=== PATIENT | male | born 1990 | race Caucasian/White ===

== ENCOUNTER 2018-03-29 10:33 | Day surgery (SDC) | payer OTHER ==
[~2018-03-29] VITALS: Ht 185.4 cm; Wt 99.8 kg
[2018-03-29] MEDS ORDERED: fentaNYL 0.05 MG/ML VIAL ONE (11:33)
[2018-03-29] MEDS ORDERED: MIDAZOLAM 2 MG/2 ML VIAL ONE (11:33)
[2018-03-29] MEDS ORDERED: MIDAZOLAM 2 MG/2 ML VIAL IVP ONE (12:50)
== END 2018-03-29 12:57 | disposition home or self-care (01) ==
LOC: MMU 10:33 → MDS 10:33
PROVIDERS: ATTEND Internal Medicine Gastroenterology
DX: K44.9 Diaphragmatic hernia without obstruction or gangrene (principal); Z87.442 Personal history of urinary calculi; Z88.1 Allergy status to other antibiotic agents; Z88.0 Allergy status to penicillin
CPT/HCPCS: 43235; J2250; J3010

== ENCOUNTER 2020-04-24 11:51 | Emergency (ER) | payer SELFPAY ==
[~2020-04-24] VITALS: Ht 185.4 cm; Wt 99.8 kg
--- NOTE | 2020-04-24 11:51 | NUR ---
Patient BIBA BLS, transferred to bed 4. RN evaluating patient at bedside.
--- NOTE | 2020-04-24 11:54 | NUR ---
30 YO M BIBA C/O LEFT SIDED FLANK PAIN 2 HOURS PRIOR TO ARRIVAL. PAIN SCALE 10/10, SHARP STABBING IN CHARACTER. PT ALSO WITH DYSURIA, 3 VOMITING EPISODES, SWEATING AND CHILLS. PT UNDERWENT LITHOTRIPSY OF RIGHT KIDNEY STONE [address] SCAN DONE AT SAME TIME WHICH REVEALED 2 SMALL PASSABLE KIDNEY STONES. PER [facility], PT TACHYCARDIC @ 104. GIVEN 4MG ZOFRAN. UPON ARRIVAL, PT WITH STABLE VS, PAIN SCALE 8/10. PT RESTING COMFORTABLY IN BED. ERMD MADE AWARE OF PT STATUS. PMH: KIDNEY STONES ALLERGIES: PENICILLIN, CEPHALEXIN
[2020-04-24 11:55] VITALS: BP 109/61
[2020-04-24] MEDS ORDERED: ONDANSETRON 4 MG/2 ML VIAL IVP ONE (12:00)
[2020-04-24] MEDS ORDERED: NACL 0.9% 1,000 ML IV ONE (12:00)
[2020-04-24] MEDS ORDERED: MORPHINE SULFATE 4 MG/ML SYR IVP ONE (12:00)
--- NOTE | 2020-04-24 12:19 | NUR ---
Pt taken to CT via [facility]
--- NOTE | 2020-04-24 12:25 | NUR ---
Pt returned from CT via [facility]
[2020-04-24 12:29] LABS: BASOPHILS % (AUTO) 0.4 % (0.0-2.0); EOSINOPHILS % (AUTO) 0.3 % (0.0-4.0); HEMATOCRIT 44.1 % (36-52); HEMOGLOBIN 14.7 g/dL (12.0-18.0); LYMPHOCYTES # (AUTO) 0.9 K/uL (2.0-11.5); LYMPHOCYTES % (AUTO) 12.7 % (20.5-51.1); MEAN CORPUSCULAR HEMOGLOBIN 29 pg (27-31); MEAN CORPUSCULAR HGB CONC 33 g/dL (33-37); MEAN CORPUSCULAR VOLUME 87.4 fL (80-94); MONOCYTES # (AUTO) 0.4 K/uL (0.8-1.0); NEUTROPHILS # (AUTO) 5.7 K/uL (1.8-7.7); NEUTROPHILS % (AUTO) 81.6 % (42.2-75.2); PLATELET COUNT (AUTO) 195 K/uL (140-450); RED BLOOD CELL COUNT(AUTO) 5.04 MIL/uL (4.20-6.10); RED CELL DISTRIBUTION WIDTH 13.6 % (11.6-13.7)
[2020-04-24 12:41] LABS: ALBUMIN 4.4 g/dL (3.4-5.0); ANION GAP 14.6 (8-16); CARBON DIOXIDE 25.1 mmol/L (21-32); CREATININE 0.9 mg/dL (0.6-1.3); POTASSIUM 3.7 mmol/L (3.5-5.1); TOTAL BILIRUBIN 0.4 mg/dL (0.0-1.0)
[2020-04-24 13:11] LABS: APPEARANCE,URINE HAZY (CLEAR); BILIRUBIN,URINE NEGATIVE (NEGATIVE); BLOOD, URINE 3+ (NEGATIVE); COLOR,URINE YELLOW (YELLOW); LEUKOCYTE ESTERASE ,URINE NEGATIVE (NEGATIVE); NITRITE, URINE NEGATIVE (NEGATIVE); UGLUCOSE NEGATIVE (NEGATIVE)
[2020-04-24 13:21] LABS: RBC,URINE 50-80 /HPF (0-5); WBC,URINE NONE SEEN /HPF (0-5)
--- NOTE | 2020-04-24 13:43 | NUR ---
Dr. Jefferson is evaluating the patient at bedside.
[2020-04-24 13:59] VITALS: BP 109/61
--- NOTE | 2020-04-24 13:59 | NUR ---
Patient discharged with v/s stable. Written and verbal after care instructions given and explained. Patient alert, oriented and verbalized understanding of instructions. Ambulatory with steady gait. All questions addressed prior to discharge. ID band removed. Patient advised to follow up with PMD. Rx of MOTRIN, TYLENOL, NORCO, CEPHALEXIN given. Patient educated on indication of medication including possible reaction and side effects. Opportunity to ask questions provided and answered.
== END 2020-04-24 13:59 | disposition home or self-care (01) ==
LOC: MED 11:51
DX: N20.0 Calculus of kidney (principal); N39.0 Urinary tract infection, site not specified; Z88.0 Allergy status to penicillin; Z88.1 Allergy status to other antibiotic agents
CPT/HCPCS: 36415; 74176; 80053; 81001; 85025; 87086; 96361; 96374; 96375; 99284; J2270; J2405; J7030